=== PATIENT | male | born 1985 | race Two or more races ===

== ENCOUNTER 2021-05-02 19:34 | Emergency (ER) | payer OTHER ==
[~2021-05-02] VITALS: Ht 165.1 cm; Wt 72.6 kg
== END 2021-05-02 20:32 | disposition home or self-care (01) ==
LOC: ER 19:34
DX: S61.021A Laceration with foreign body of right thumb without damage to nail, initial encounter (principal); W26.0XXA Contact with knife, initial encounter; Y93.9 Activity, unspecified; Y92.9 Unspecified place or not applicable

== ENCOUNTER 2021-05-09 16:15 | Emergency (ER) | payer OTHER ==
[~2021-05-09] VITALS: Ht 165.1 cm; Wt 72.6 kg
[2021-05-09] MEDS ORDERED: MUPIROCIN15 GM TOP (16:31)
== END 2021-05-09 16:36 | disposition home or self-care (01) ==
LOC: ER 16:15
DX: Z48.02 Encounter for removal of sutures (principal)

== ENCOUNTER 2022-02-24 11:29 | Outpatient (CLI) | payer OTHER ==
[~2022-02-24 11:29] MED LIST: MUPIROCIN15 GM TOP
== END 2022-02-24 11:37 | disposition home or self-care (01) ==
LOC: RAD 11:29
PROVIDERS: ATTEND Surgery
DX: G56.01 Carpal tunnel syndrome, right upper limb (principal)